=== PATIENT | male | born 1985 | race Caucasian/White ===

== ENCOUNTER 2020-08-10 21:36 | Emergency (ER) | payer MEDICAID ==
[~2020-08-10] VITALS: Ht 177.8 cm; Wt 81.6 kg
--- NOTE | 2020-08-10 21:50 | NUR ---
BIBSELF C/O LUQ ABD PAIN SINCE THIS AM, SEEN AT [place], -CT GIVEN MORPHINE, PAIN RETURNED AT 19:30P. PT AOX RR EVEN AND UNLABORED. NO SOB NOTED. NO NVD AT THIS TIME. 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 PT WAITING FOR MD AGRAWAL.
--- NOTE | 2020-08-10 22:21 | NUR ---
pt moved to er bed 11, dr. jacobs at bedside for eval.
--- NOTE | 2020-08-10 22:23 | NUR ---
urine collected. sent to lab
[2020-08-10] MEDS ORDERED: MORPHINE SULFATE INJ 4 MG/ML DISP.SYRIN ONE (22:27)
[2020-08-10] MEDS ORDERED: FAMOTIDINE/PF INJ 20 MG/2 ML VIAL IV ONE ×2 (22:27→22:30)
[2020-08-10] MEDS ORDERED: MORPHINE SULFATE INJ 2 MG/ML DISP.SYRIN IV ONE (22:30)
[2020-08-10] MEDS ORDERED: IV NS 0.9% 500 ML BAG IV ONE (22:30)
[2020-08-10 22:52] LABS: BASOPHILS % (AUTO) 0.3 % (0.0-2.0); EOSINOPHILS % (AUTO) 0.9 % (0.0-6.0); HEMATOCRIT 44 % (39-51); HEMOGLOBIN 15.1 g/dL (13.5-17.5); LYMPHOCYTES # (AUTO) 1.7 /CMM (0.8-4.8); LYMPHOCYTES % (AUTO) 17.6 % (20.0-44.0); MEAN CORPUSCULAR HGB CONC 34 g/dl (31.0-36.0); MEAN CORPUSCULAR VOLUME 90 fL (80-96); MONOCYTES # (AUTO) 0.8 /CMM (0.1-1.30); MONOCYTES % (AUTO) 8.2 % (2.0-12.0); PLATELET COUNT (AUTO) 177 /CMM (150-450); RED BLOOD CELL COUNT(AUTO) 4.88 MIL/uL (4.5-6.0); WHITE BLOOD COUNT (AUTO) 9.6 K/uL (4.3-11.0)
[2020-08-10 23:03] LABS: CALCIUM, SERUM 8.8 mg/dL (8.5-10.1); CARBON DIOXIDE 30 mmol/L (21-32); CHLORIDE 105 mmol/L (98-107); GLUCOSE 113 mg/dL (74-106); SODIUM SERUM 140 mmol/L (136-145); UREA NITROGEN, BLOOD 9 mg/dL (7-18)
[2020-08-10 23:09] LABS: ALANINE AMINOTRANSFERASE 89 U/L (12-78); ALKALINE PHOSPHATASE 60 U/L (46-116); ASPARTATE AMINOTRANSFERASE 31 U/L (15-37); BILIRUBIN,DIRECT 0.1 mg/dL (0.0-0.2); BILIRUBIN,TOTAL 0.4 mg/dL (0.2-1.0); LIPASE 154 U/L (73-393); TOTAL PROTEIN, SERUM 6.8 g/dL (6.4-8.2)
[2020-08-10 23:34] VITALS: BP 127/88
--- NOTE | 2020-08-10 23:34 | NUR ---
pt is medically stbale for d/c, IV removed. Catheter intact and site benign. Pressure and 4x4 applied to site. No bleeding noted.Patient discharged to home in stable condition. Rx and Written and verbal after care instructions given. Patient verbalizes understanding of instruction.
== END 2020-08-10 23:38 | disposition home or self-care (01) ==
LOC: ER 21:40
DX: R10.12 Left upper quadrant pain (principal); I10 Essential (primary) hypertension
CPT/HCPCS: 36415; 71045; 80048; 80076; 83690; 84484; 85025; 93005; 96361; 96374; 96375; 99285; J2270; J3490; J7040

== ENCOUNTER 2020-08-15 19:50 | Emergency (ER) | payer MEDICAID ==
[~2020-08-15] VITALS: Ht 177.8 cm; Wt 81.6 kg
--- NOTE | 2020-08-15 19:55 | NUR ---
PT BIBRA FROM HOME C/O ABDOMINAL PAIN. 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 PT AAOX4. RESPIRATIONS EVEN AND UNLABORED. SKIN INTACT. NO ACUTE DISTRESS. WILL CONTINUE TO MONITOR
[2020-08-15] MEDS ORDERED: IV NS 0.9% 1,000 ML BAG IV ONE (20:00)
[2020-08-15] MEDS ORDERED: PANTOPRAZOLE 40 MG VIAL IV ONE (20:00)
[2020-08-15] MEDS ORDERED: ONDANSETRON HCL/PF 4 MG/2 ML VIAL IV ONE (20:00)
[2020-08-15] MEDS ORDERED: MORPHINE SULFATE INJ 2 MG/ML DISP.SYRIN IV ONE (20:00)
[2020-08-15] MEDS ORDERED: PANTOPRAZOLE 40 MG VIAL ONE (20:08)
[2020-08-15] MEDS ORDERED: ONDANSETRON HCL/PF 4 MG/2 ML VIAL ONE (20:09)
[2020-08-15] MEDS ORDERED: MORPHINE SULFATE INJ 4 MG/ML DISP.SYRIN ONE (20:09)
--- NOTE | 2020-08-15 20:10 | NUR ---
IV INITIATED RAC 18G. LABS DRAWN FROM SITE. COMMERCIAL COORDINATOR AT BEDSIDE FOR COLLECTION. IV INTACT AND PATENT, PLACED ON SALINE LOCK
[2020-08-15 20:16] LABS: BASOPHILS # (AUTO) 0.1 /CMM (0.0-0.2); BASOPHILS % (AUTO) 0.7 % (0.0-2.0); EOSINOPHILS % (AUTO) 1.4 % (0.0-6.0); HEMATOCRIT 44 % (39-51); HEMOGLOBIN 14.8 g/dL (13.5-17.5); LYMPHOCYTES # (AUTO) 2.1 /CMM (0.8-4.8); LYMPHOCYTES % (AUTO) 21.6 % (20.0-44.0); MEAN CORPUSCULAR HGB CONC 34 g/dl (31.0-36.0); MEAN CORPUSCULAR VOLUME 90 fL (80-96); MONOCYTES # (AUTO) 0.6 /CMM (0.1-1.30); MONOCYTES % (AUTO) 6.6 % (2.0-12.0); NEUTROPHILS # (AUTO) 6.8 /CMM (1.8-8.9); NEUTROPHILS % (AUTO) 69.7 % (43.0-81.0); PLATELET COUNT (AUTO) 193 /CMM (150-450); RED BLOOD CELL COUNT(AUTO) 4.84 MIL/uL (4.5-6.0); WHITE BLOOD COUNT (AUTO) 9.7 K/uL (4.3-11.0)
[2020-08-15 20:22] LABS: CALCIUM, SERUM 9.4 mg/dL (8.5-10.1); CREATININE 1.2 mg/dL (0.6-1.3); POTASSIUM 3.8 mmol/L (3.5-5.1)
[2020-08-15 20:28] LABS: ALBUMIN 4.2 g/dL (3.4-5.0); BILIRUBIN,DIRECT 0.1 mg/dL (0.0-0.2); BILIRUBIN,TOTAL 0.5 mg/dL (0.2-1.0); TOTAL PROTEIN, SERUM 7.3 g/dL (6.4-8.2)
[2020-08-15] MEDS ORDERED: KETOROLAC TROMETHAMINE INJ 30 MG/ML VIAL IV ONE (21:00)
[2020-08-15] MEDS ORDERED: KETOROLAC TROMETHAMINE INJ 30 MG/ML VIAL ONE (21:15)
[2020-08-15 21:33] VITALS: BP 137/79
--- NOTE | 2020-08-15 21:33 | NUR ---
Patient discharged to home in stable condition. Written and verbal after care instructions given. Patient verbalizes understanding of instruction.IV removed. Catheter intact and site benign. Pressure and 4x4 applied to site. No bleeding noted.Pt ambulatory with a steady gait
== END 2020-08-15 21:33 | disposition home or self-care (01) ==
LOC: ER 19:51
DX: K80.80 Other cholelithiasis without obstruction (principal); I10 Essential (primary) hypertension; F17.210 Nicotine dependence, cigarettes, uncomplicated; Z79.899 Other long term (current) drug therapy
CPT/HCPCS: 36415; 71045; 76700; 80048; 80076; 83690; 85025; 96361; 96374; 96375; 99285; 99406; C9113; J1885; J2270; J2405; J7030

== ENCOUNTER 2020-09-30 01:51 | Emergency (ER) | payer MEDICAID ==
[~2020-09-30] VITALS: Ht 177.8 cm; Wt 77.1 kg
[2020-09-30] MEDS ORDERED: KETOROLAC TROMETHAMINE 15 MG/ML VIAL ONE (01:58)
[2020-09-30] MEDS ORDERED: KETOROLAC TROMETHAMINE INJ 30 MG/ML VIAL IV ONE (02:00)
--- NOTE | 2020-09-30 02:06 | NUR ---
PT BIB RA 102 FROM HOME C/O LEFT LOWER ABDOMINAL PAIN RADIATING TO THE LEFT LOWER BACK SINCE 2X HOURS. PATIENT STATES THAT HE TOOK 2 NORCOS FOR PAIN ABOUT A FEW HOURS AGO. PATIENT IS AAAOX4. NO SOB. BREATHING EVENLY AND UNLABORED ON ROOM AIR. CONNECTED TO THE MONITOR.
--- NOTE | 2020-09-30 02:07 | NUR ---
BLOOD COLLECTED AND SENT TO THE LAB.
[2020-09-30] MEDS ORDERED: IOHEXOL-300 100 ML VIAL IV ONE (02:16)
[2020-09-30] MEDS ORDERED: IV NS 0.9% 0 ML IV ONE (02:17)
[2020-09-30 02:18] LABS: BASOPHILS # (AUTO) 0.1 /CMM (0.0-0.2); BASOPHILS % (AUTO) 0.9 % (0.0-2.0); EOSINOPHILS % (AUTO) 2.2 % (0.0-6.0); HEMATOCRIT 43 % (39-51); HEMOGLOBIN 14.8 g/dL (13.5-17.5); LYMPHOCYTES # (AUTO) 3.9 /CMM (0.8-4.8); MEAN CORPUSCULAR HGB CONC 34 g/dl (31.0-36.0); MEAN CORPUSCULAR VOLUME 89 fL (80-96); MONOCYTES # (AUTO) 0.8 /CMM (0.1-1.30); NEUTROPHILS # (AUTO) 4.6 /CMM (1.8-8.9); NEUTROPHILS % (AUTO) 47.9 % (43.0-81.0); PLATELET COUNT (AUTO) 173 /CMM (150-450); RED BLOOD CELL COUNT(AUTO) 4.86 MIL/uL (4.5-6.0); WHITE BLOOD COUNT (AUTO) 9.6 K/uL (4.3-11.0)
[2020-09-30 02:29] LABS: CALCIUM, SERUM 8.7 mg/dL (8.5-10.1); CREATININE 1.2 mg/dL (0.6-1.3); POTASSIUM 3.8 mmol/L (3.5-5.1)
[2020-09-30 02:35] LABS: ALBUMIN 4.1 g/dL (3.4-5.0); BILIRUBIN,DIRECT 0.1 mg/dL (0.0-0.2); BILIRUBIN,TOTAL 0.4 mg/dL (0.2-1.0); TOTAL PROTEIN, SERUM 6.6 g/dL (6.4-8.2)
[2020-09-30 05:06] LABS: COLOR,URINE YELLOW (YELLOW); PROTEIN,URINE NEGATIVE (NEGATIVE); UGLUCOSE NEGATIVE (NEGATIVE)
[2020-09-30 05:07] LABS: BILIRUBIN,URINE NEGATIVE (NEGATIVE); LEUKOCYTE ESTERASE ,URINE NEGATIVE (NEGATIVE); NITRITE, URINE NEGATIVE (NEGATIVE); UROBILINOGEN,URINE 0.2 EU/dL (0.2)
[2020-09-30] MEDS ORDERED: KETO10TA2 PO (05:26)
--- NOTE | 2020-09-30 05:54 | NUR ---
IV removed. Catheter intact and site benign. Pressure and 4x4 applied to site. No bleeding noted.
--- NOTE | 2020-09-30 05:55 | NUR ---
PATIENT CALLING TO PICK HIM UP.
--- NOTE | 2020-09-30 05:55 | NUR ---
Patient discharged to home in stable condition. Written and verbal after care instructions given. Patient verbalizes understanding of instruction.
--- NOTE | 2020-09-30 06:02 | NUR ---
PATIENT IS PICKED UP BY .
[2020-09-30 06:26] VITALS: BP 133/74
[2020-10-01] MEDS ORDERED: ONDANSETRON HCL/PF 4 MG/2 ML VIAL IV PRN (15:30)
[2020-10-01] MEDS ORDERED: HYDROCODONE/APAP 5/325MG TABLET PO ONE ×2 (15:30→18:30)
[2020-10-01] MEDS ORDERED: ZOLPIDEM TARTRATE 5 MG TABLET PO PRN (15:30)
[2020-10-01] MEDS ORDERED: ACETAMINOPHEN 650 MG/20.3 ML UDC PO PRN (15:30)
[2020-10-01] MEDS ORDERED: IV D5/ 0.9% NACL 1,000 ML IV PRN (15:30)
[2020-10-01] MEDS ORDERED: HYDROMORPHONE MDV 0.5 MG in IV D5W 50 ML IV PRN ×2 (15:30→18:30)
[2020-10-02 07:07] LABS: ALBUMIN 3.6 g/dL (3.4-5.0); BASOPHILS % (AUTO) 0.6 % (0.0-2.0); BILIRUBIN,TOTAL 0.5 mg/dL (0.2-1.0); CALCIUM, SERUM 8.7 mg/dL (8.5-10.1); CREATININE 1.1 mg/dL (0.6-1.3); EOSINOPHILS % (AUTO) 2.3 % (0.0-6.0); HEMATOCRIT 42 % (39-51); HEMOGLOBIN 14.2 g/dL (13.5-17.5); LYMPHOCYTES # (AUTO) 2.7 /CMM (0.8-4.8); LYMPHOCYTES % (AUTO) 41.7 % (20.0-44.0); MEAN CORPUSCULAR HGB CONC 34 g/dl (31.0-36.0); MEAN CORPUSCULAR VOLUME 90 fL (80-96); MONOCYTES # (AUTO) 0.5 /CMM (0.1-1.30); MONOCYTES % (AUTO) 7.9 % (2.0-12.0); NEUTROPHILS # (AUTO) 3.1 /CMM (1.8-8.9); NEUTROPHILS % (AUTO) 47.5 % (43.0-81.0); PLATELET COUNT (AUTO) 158 /CMM (150-450); POTASSIUM 3.9 mmol/L (3.5-5.1); RED BLOOD CELL COUNT(AUTO) 4.61 MIL/uL (4.5-6.0); TOTAL PROTEIN, SERUM 5.9 g/dL (6.4-8.2); WHITE BLOOD COUNT (AUTO) 6.5 K/uL (4.3-11.0)
[2020-10-03] MEDS ORDERED: Amox/Clavulanate PO (09:20)
[2020-10-03] MEDS ORDERED: ACET-907 PO (09:20)
== END 2020-09-30 06:26 | disposition home or self-care (01) ==
LOC: ER 01:52
DX: R10.12 Left upper quadrant pain (principal); R10.32 Left lower quadrant pain; I10 Essential (primary) hypertension; F17.200 Nicotine dependence, unspecified, uncomplicated
CPT/HCPCS: 36415; 74176; 80048; 80076; 81003; 83690; 85025; 96374; 99284; J1885; J7050; Q9967

== ENCOUNTER 2020-10-01 03:39 | Inpatient (IN) | payer MEDICAID ==
[~2020-10-01] VITALS: Ht 177.8 cm; Wt 77.1 kg
[~2020-10-01 03:39] MED LIST: KETO10TA2 PO
--- NOTE | 2020-10-01 03:46 | NUR ---
Pt bibself c/o worsening abd pain x few hours. pt aaox4 breathing evenly and unlabored. pt moaning and holding left side. pt denies n/v/d. Pt skin warm, dry, and intact. Pt has gallbladder surgery on 10/11. Rt ac 20g iv initiated and blood sample obtained and sent to lab. pt attached to monitor and pox. pt made comfortable with blanket and call light within reach.
[2020-10-01] MEDS ORDERED: MORPHINE SULFATE INJ 4 MG/ML DISP.SYRIN ONE (03:55)
[2020-10-01] MEDS ORDERED: MORPHINE SULFATE INJ 2 MG/ML DISP.SYRIN IV ONE (04:00)
[2020-10-01 04:13] LABS: BASOPHILS # (AUTO) 0.1 /CMM (0.0-0.2); BASOPHILS % (AUTO) 0.6 % (0.0-2.0); EOSINOPHILS % (AUTO) 1.7 % (0.0-6.0); HEMATOCRIT 42 % (39-51); HEMOGLOBIN 14.5 g/dL (13.5-17.5); LYMPHOCYTES # (AUTO) 2.2 /CMM (0.8-4.8); MEAN CORPUSCULAR HGB CONC 35 g/dl (31.0-36.0); MEAN CORPUSCULAR VOLUME 89 fL (80-96); MONOCYTES # (AUTO) 0.7 /CMM (0.1-1.30); MONOCYTES % (AUTO) 7.5 % (2.0-12.0); NEUTROPHILS # (AUTO) 6.4 /CMM (1.8-8.9); NEUTROPHILS % (AUTO) 67.2 % (43.0-81.0); PLATELET COUNT (AUTO) 161 /CMM (150-450); RED BLOOD CELL COUNT(AUTO) 4.69 MIL/uL (4.5-6.0); WHITE BLOOD COUNT (AUTO) 9.5 K/uL (4.3-11.0)
[2020-10-01 04:22] LABS: CALCIUM, SERUM 8.7 mg/dL (8.5-10.1); CREATININE 1.3 mg/dL (0.6-1.3); POTASSIUM 3.8 mmol/L (3.5-5.1)
--- NOTE | 2020-10-01 04:26 | NUR ---
us at bedside
[2020-10-01 04:27] LABS: BILIRUBIN,DIRECT 0.1 mg/dL (0.0-0.2); BILIRUBIN,TOTAL 0.4 mg/dL (0.2-1.0); TOTAL PROTEIN, SERUM 6.4 g/dL (6.4-8.2)
--- NOTE | 2020-10-01 06:00 | NUR ---
covid swab sent to lab
--- NOTE | 2020-10-01 06:17 | NUR ---
PER [employer] REPAIRER RAHEEM PT CAPITATED TO [facility]. WILL FAX CLINICAL INFORMATION PER REQUEST Addendum: 10/01/20 at 0713 by CASIMIRO PER RAHEEM, PLEASE FAX COVID RESULTS WHEN FINAL ([phone])
--- NOTE | 2020-10-01 07:13 | NUR ---
endorsed care to ZORAIDA Garza for deisy
--- NOTE | 2020-10-01 07:39 | NUR ---
received a call from the lab regarding covid 19 result "negative".
--- NOTE | 2020-10-01 08:06 | NUR ---
FAXED COVID RESULTS TO [phone]
--- NOTE | 2020-10-01 09:23 | NUR ---
ANUEL REGAL [phone]
--- NOTE | 2020-10-01 09:48 | NUR ---
received a call from the and update given in regards with [place] [facility]
--- NOTE | 2020-10-01 13:35 | NUR ---
Received a call from [employer] business case analyst in regards with the patient to admit the patient here, [facility] under Dr. Pina.
--- NOTE | 2020-10-01 13:40 | NUR ---
DR MEYER SPEAKING WITH DR ALMENDAREZ
--- NOTE | 2020-10-01 13:43 | NUR ---
CALLED RN PNP FOR BED
--- NOTE | 2020-10-01 14:20 | NUR ---
room 304-1
--- NOTE | 2020-10-01 14:32 | NUR ---
wheeled patient via wheelchair to MRI
--- NOTE | 2020-10-01 14:38 | NUR ---
report given to shirley CONWAY for deisy
--- NOTE | 2020-10-01 15:03 | NUR ---
patient came back from MRI
--- NOTE | 2020-10-01 15:39 | NUR ---
BROUGHT PATIENT BY SAMRA IN NO DISTRESS. RN AT BEDSIDE TO RESUME CARE.
[2020-10-01] MEDS ORDERED: IOHEXOL-350 100 ML VIAL IV ONE (15:43)
[2020-10-01] MEDS ORDERED: IV NS 0.9% 250 ML IV ONE (15:44)
--- NOTE | 2020-10-01 15:59 | NUR ---
MS RN ADMITTING NOTES RECEIVED PATIENT FROM ER IN MEDICALLY STABLE CONDITION. PATIENT A/O X4. SAFETY PRECAUTIONS IN PLACE; BED IN LOW POSITION AND LOCKED, RAILS UP X2, CALL LIGTH WITHIN REACH. WILL CONTINUE TO MONITOR PATIENT.
[2020-10-01] MEDS ORDERED: PEG 3350/NA SULF,BICARB,CL/KCL 4,000 ML BOTTLE PO ONE (16:00)
--- NOTE | 2020-10-01 16:00 | NUR ---
MS RN NOTES PER DR. URIBE ORDER PATIENT TO BE ON CLEAR LIQUID DIET FOR NOW AND MAKE HIM NPO AFTER MIDNIGHT.
--- NOTE | 2020-10-01 16:47 | NUR ---
MS RN NOTES DR FIORE CALLED AND REQUESTED TO CANCEL ALL HIS ORDERS BECAUSE DR URIBE HAS PLANNED A SURGERY FOR TOMORROW. ORDERS CANCELED.
--- NOTE | 2020-10-01 16:49 | NUR ---
CTA ABDOMEN PELVIS ORDERED BY DR. SERRATO UNDER 10/01/19 AT 1520. PATIENT STATES HE IS ALLERGIC TO CONTRAST. RN WAS NOTIFIED, WILL WAIT FOR FOLLOW UP INSTRUCTION IF EXAM IS STILL NEEDED.
[2020-10-01 18:00] VITALS: BP 118/82
[2020-10-01] MEDS ORDERED: ACETAMINOPHEN 650 MG/20.3 ML UDC PO PRN (18:30)
[2020-10-01] MEDS ORDERED: ONDANSETRON HCL/PF 4 MG/2 ML VIAL IV PRN (18:30)
[2020-10-01] MEDS ORDERED: ZOLPIDEM TARTRATE 5 MG TABLET PO PRN (18:30)
[2020-10-01] MEDS ORDERED: HYDROCODONE/APAP 5/325MG TABLET PO ONE (18:31)
[2020-10-01] MEDS: IV D5/ 0.9% NACL 1,000 ML IV PRN (18:43)
[2020-10-01] MEDS ORDERED: HYDROMORPHONE MDV 0.5 MG in IV D5W 50 ML IV PRN (19:00)
--- NOTE | 2020-10-01 19:13 | NUR ---
MS RN CLOSING NOTES PATIENT RESTING IN BED, AWAKE, A/O X4. PATIENT ON ROOM AIR; BREATHING EVEN AND UNLABORED; NO SOB PRESENT. LAC G #20 INFUSING D5NS @ 75 MLS/HR. PATIENT TO BE NPO AFTER MIDNIGHT PER MD ORDER. SAFETY PRECAUTIONS IN PLACE; BED IN LOW POSITION AND LOCKED, RAILS UP X2, CALL LIGHT WITHIN REACH. WILL ENDORSE TO PILL PACKER NURSE.
--- NOTE | 2020-10-01 19:30 | NUR ---
MSRN FULLY AWAKE, IVF INFUSING WELL VIA RIGHT AC. NO N/V AT THIS TIME. REMINDED TO CALL STAFF FOR ANY ASSISTANCE OR FURTHER DISCOMFORTS, SAFETY PRECAUTIONS EMPHASIZED WELL UNDERSTOOD. SPOKE TO VIA PHONE KEPT INFORMED. CONTINUED.
[2020-10-01 20:00] VITALS: BP 103/60
--- NOTE | 2020-10-01 20:20 | NUR ---
MSRN PLACED CALL TO DR. MEYER FURTHER ORDERS OBTAINED. PATIENT FOR SURGERY ANGELA UNDER DR. URIBE. PENDING TIME INFO. PATIENT INSTRUCTED NPO POST MIDNIGHT.
[2020-10-01 20:39] VITALS: BP 103/60
--- NOTE | 2020-10-02 03:34 | NUR ---
MSRN SLEPT MOST OF THE NIGHT. IVF INFUSING WELL.
[2020-10-02] MEDS: IV D5/ 0.9% NACL 1,000 ML IV PRN (05:44)
[2020-10-02] MEDS ORDERED: SORBITOL SOLUTION 30 ML PO SCH (06:00)
--- NOTE | 2020-10-02 07:00 | NUR ---
MSRN NPO INSTRUCTED. NO ABDOMINAL PAIN WHOLE NIGHT. PRE OP EDUCATION DONE. ENDORSED TO INCOMING RN
--- NOTE | 2020-10-02 07:30 | NUR ---
MS/RN OPENING NOTE Received patient resting in bed, A&O x 4, easily arousable to touch and verbal stimulation. Denies any pain/discomfort at this time. Breathing even and non-labored on RA, no SOB noted. No cardiac distress noted. IV access noted on RAC #18, patent and intact, and running D5NS @ 75 ml/hr. Bed locked to its lowest position, side rails x 2 up, call light in hand. Will continue with current medical management.
[2020-10-02 08:00] VITALS: BP 107/65
--- NOTE | 2020-10-02 08:30 | NUR ---
MS/RN NOTE Clarified with Dr. Pina whether patient needs CXR, EKG, UA prior to procedure, per MD, "no need."
--- NOTE | 2020-10-02 13:46 | NUR ---
MS/RN NOTE Patient picked up by OR tech/nurse for scheduled lap cholecystectomy.
[2020-10-02] MEDS ORDERED: MIDAZOLAM HCL 2 MG/2ML VIAL ONE (14:25)
[2020-10-02] MEDS ORDERED: FAMOTIDINE/PF INJ 20 MG/2 ML VIAL IV ONE (14:26)
[2020-10-02] MEDS ORDERED: FENTANYL PF 250MCG/5ML AMPUL ONE (14:26)
[2020-10-02] MEDS ORDERED: BUPIVACAINE MPF W/EPI 0.25% 30 ML VIAL ONE (14:28)
--- NOTE | 2020-10-02 14:46 | NUR ---
MS/RN NOTE Spoke with Dr. Pina, states patient will have to do colonoscopy outpatient.
[2020-10-02] MEDS ORDERED: HYDROMORPHONE 1 MG/1 ML DISP.SYRIN ONE (16:13)
[2020-10-02 17:00] VITALS: BP 126/73
--- NOTE | 2020-10-02 17:00 | NUR ---
MS/RN NOTE Patient came back from OR, transferred safely to [facility]. Patient appears well and comfortable, on 2L oxygen via NC, saturating at 96%. Clean dry dressing noted on right lower quadrant of the abdomen, MIGUELINA drain noted with serosanguinous fluid of 50 cc. Per PACU nurse, they emptied out 25 cc today. Will continue to monitor. Addendum: 10/02/20 at 1923 by CARLOS DOWNEY RN POST OP ORDERS FROM DR URIBE NOTED IN THE CHART AND CARRIED OUT.
--- NOTE | 2020-10-02 19:22 | NUR ---
MS/RN CLOSING NOTE Patient resting in bed, A&O x 4, easily arousable to touch and verbal stimulation. All needs met and attended to. No complaints of any pain/discomfort at this time. Breathing even and non-labored on RA, no SOB noted. No cardiac distress noted. IV access noted on RAC #18, patent and intact, and running D5NS @ 75 ml/hr. MIGUELINA drain noted with serosanguinous fluid. Fall precautions maintained. Will endorse to restaurant shift leader nurse.
--- NOTE | 2020-10-02 19:30 | NUR ---
MS/RN OPENING NOTE Received patient resting in bed, A&O x4, able to verbalize needs. In no apparent distress noted. Denies any pain or discomfort at this time. Breathing even and non-labored on room air, no SOB noted. IV access noted on RAC #18, patent and intact, and running D5NS @ 75 ml/hr. Bed locked to its lowest position, side rails x 2 up, call light within reach. Will continue to monitor.
[2020-10-02 20:00] VITALS: BP 106/58
[2020-10-02] MEDS: HYDROMORPHONE 1 MG/1 ML DISP.SYRIN IV PRN (22:46)
[2020-10-03] MEDS: HYDROMORPHONE 1 MG/1 ML DISP.SYRIN IV PRN (05:05)
--- NOTE | 2020-10-03 06:04 | NUR ---
MS/RN closing note: Patient in bed, awake, alert and oriented x4. Able to verbalize needs. In no apparent distress noted. Denies any pain or discomfort at this time. Breathing even and non-labored on room air, no SOB noted. IV access noted on RAC #18, patent and intact. Bed locked to its lowest position, side rails x 2 up, call light within reach. Will continue to monitor.
[2020-10-03 06:06] LABS: BASOPHILS % (AUTO) 0.2 % (0.0-2.0); EOSINOPHILS % (AUTO) 0.1 % (0.0-6.0); HEMATOCRIT 43 % (39-51); HEMOGLOBIN 14.6 g/dL (13.5-17.5); LYMPHOCYTES # (AUTO) 1.2 /CMM (0.8-4.8); LYMPHOCYTES % (AUTO) 9.4 % (20.0-44.0); MEAN CORPUSCULAR HGB CONC 34 g/dl (31.0-36.0); MEAN CORPUSCULAR VOLUME 90 fL (80-96); MONOCYTES # (AUTO) 0.7 /CMM (0.1-1.30); MONOCYTES % (AUTO) 5.9 % (2.0-12.0); NEUTROPHILS # (AUTO) 10.4 /CMM (1.8-8.9); NEUTROPHILS % (AUTO) 84.4 % (43.0-81.0); PLATELET COUNT (AUTO) 184 /CMM (150-450); WHITE BLOOD COUNT (AUTO) 12.4 K/uL (4.3-11.0)
[2020-10-03 06:52] LABS: ALBUMIN 3.8 g/dL (3.4-5.0); BILIRUBIN,TOTAL 0.5 mg/dL (0.2-1.0); CALCIUM, SERUM 8.8 mg/dL (8.5-10.1); CREATININE 1.1 mg/dL (0.6-1.3); POTASSIUM 4.7 mmol/L (3.5-5.1); TOTAL PROTEIN, SERUM 6.5 g/dL (6.4-8.2)
--- NOTE | 2020-10-03 07:38 | NUR ---
MS RN OPENING NOTE PATIENT IS IN BED RESTING. PATIENT IS IN NO ACUTE DISTRESS. NO SOB NOTED. PATIENT IS ON ROOM AIR. TOLERATING WELL. BED SAFETY PRECAUTIONS ARE IN PLACE. BED IN THE LOWEST POSITION. SIDE RAILS ARE UP, CALL LIGHT WITHIN REACH, WILL CONTINUE TO MONITOR CLOSELY.
[2020-10-03 08:00] VITALS: BP 128/78
[2020-10-03] MEDS ORDERED: Amox/Clavulanate PO (09:20)
[2020-10-03] MEDS ORDERED: ACET-907 PO (09:20)
[2020-10-03] MEDS ORDERED: AMOX/CLAVULANATE 875 MG TABLET PO SCH (10:00)
--- NOTE | 2020-10-03 12:00 | NUR ---
MS BABY ATTENDANT NOTE PATIENT IS STABLE IN NO ACUTE DISTRESS. SAFETY PRECAUTIONS ARE ON. PATIENT IS MEDICALLY STABLE TO BE DISCHARGED. VITALS SIGNS ARE WNL. NO SOB NOTED. PATIENT IS ABLE TO VERBALIZE UNDERSTANDING. DISCHARGE INSTRUCTIONS PROVIDED. PATIENTS BELONGINGS LIST IS SIGHED. IV LINE AND ID BAND REMOVED. PATIENT IS ABLE TO AMBULATE. PATIENT IS PICKED UP BY HIS . MD IS AWARE OF DISCHARGE.
== END 2020-10-03 11:30 | disposition home or self-care (01) | DRG 263 ==
LOC: ER 03:41 → TRANSITION 13:59 → MED 14:43
PROVIDERS: ADMIT Internal Medicine; ATTEND Internal Medicine
PROC: 0FT44ZZ Resection of Gallbladder, Percutaneous Endoscopic Approach (ICD-10-PCS; principal; 2020-10-02)
DX: K80.12 Calculus of gallbladder with acute and chronic cholecystitis without obstruction (principal); G89.29 Other chronic pain; F17.210 Nicotine dependence, cigarettes, uncomplicated; Z20.822 Contact with and (suspected) exposure to COVID-19
CPT/HCPCS: 36415; 74181-TC; 76705-TC; 80048-TC; 80053-TC; 80076-TC; 83690-TC; 85025-TC; 85610-TC; 85730-TC; 86850-TC; 87081-TC; A6253; C9803; G0378; J0690; J1100; J1170; J1885; J2250; J2270; J2704; J2765; J3010; J3490; J7042; J7050; Q9967

== ENCOUNTER 2020-12-26 21:18 | Emergency (ER) | payer MEDICAID ==
[~2020-12-26] VITALS: Ht 177.8 cm; Wt 79.4 kg
[~2020-12-26 21:18] MED LIST changes: +ACET-907 PO; +Amox/Clavulanate PO; -KETO10TA2 PO
--- NOTE | 2020-12-26 21:23 | NUR ---
BIBSELF C/O L SIDED WEAKNESS SINCE AM +FACIAL NUMBNESS, PT STATES SYMPTOMS STARTED 11AM TODAY. PT TO BED 8, PLACED ON MONITOR, NOT IN ACUTE DISTRESS, NO SOB. VSS, PENDING ER PROVIDER NGHIA
[2020-12-26] MEDS ORDERED: ASPIRIN 325 MG TABLET PO ONE (22:00)
[2020-12-26 22:17] LABS: BASOPHILS # (AUTO) 0.1 /CMM (0.0-0.2); BASOPHILS % (AUTO) 1.1 % (0.0-2.0); EOSINOPHILS % (AUTO) 2.5 % (0.0-6.0); HEMATOCRIT 46 % (39-51); HEMOGLOBIN 15.8 g/dL (13.5-17.5); LYMPHOCYTES # (AUTO) 3.5 /CMM (0.8-4.8); LYMPHOCYTES % (AUTO) 37.8 % (20.0-44.0); MEAN CORPUSCULAR HGB CONC 34 g/dl (31.0-36.0); MEAN CORPUSCULAR VOLUME 90 fL (80-96); MONOCYTES # (AUTO) 0.7 /CMM (0.1-1.30); MONOCYTES % (AUTO) 7.6 % (2.0-12.0); NEUTROPHILS # (AUTO) 4.7 /CMM (1.8-8.9); PLATELET COUNT (AUTO) 191 /CMM (150-450); RED BLOOD CELL COUNT(AUTO) 5.11 MIL/uL (4.5-6.0); WHITE BLOOD COUNT (AUTO) 9.1 K/uL (4.3-11.0)
[2020-12-26] MEDS ORDERED: IOHEXOL-350 100 ML VIAL IV ONE (22:23)
[2020-12-26] MEDS ORDERED: IV NS 0.9% 250 ML IV ONE (22:23)
[2020-12-26] MEDS ORDERED: CT SWABBABLE VALVE TRANS SET 1 EA INFUS.SET MC ONE (22:23)
--- NOTE | 2020-12-26 22:26 | NUR ---
PT HAS IODINE ALLERGY, ZEAMARJIT VERA VERIFIED WITH PATIENT, HAS ALLERGY RXN = RASHES. PT CAN GO CT WITH CONTRAST.
[2020-12-26 22:30] LABS: CALCIUM, SERUM 8.6 mg/dL (8.5-10.1); CARBON DIOXIDE 29 mmol/L (21-32); CHLORIDE 102 mmol/L (98-107); CREATININE 1.2 mg/dL (0.6-1.3); GLUCOSE 100 mg/dL (74-106); POTASSIUM 3.8 mmol/L (3.5-5.1); SODIUM SERUM 139 mmol/L (136-145); UREA NITROGEN, BLOOD 11 mg/dL (7-18)
[2020-12-26] MEDS ORDERED: DILTIAZEM HCL 25 MG IV IV ONE (22:30)
--- NOTE | 2020-12-26 22:54 | NUR ---
BACK FROM CT
[2020-12-26 22:59] LABS: CHOLESTEROL 267 mg/dL (<200); HDL CHOLESTEROL 36 mg/dL (40-60); LDL 186 mg/dL (0-99); TRIGLYCERIDES 330 mg/dL (30-150)
[2020-12-26] MEDS ORDERED: ASPIRIN 325 MG TABLET ONE (23:13)
--- NOTE | 2020-12-26 23:39 | NUR ---
CALL FROM LAB. RAPID COVID NEGATIVE.
--- NOTE | 2020-12-26 23:41 | NUR ---
Patient does not wish to proceed with medical care recommended by Jayme VERA Patient given information related to possible complications, up to and including , which could occur as a result of leaving the hospital at this time. Patient verbalizes understanding of risks involved due to leaving against medical advice. Patient has signed AMA form.
[2020-12-27 00:10] VITALS: BP 148/90
== END 2020-12-27 00:10 | disposition home or self-care (01) ==
LOC: ER 21:20
DX: R29.2 Abnormal reflex (principal); E78.2 Mixed hyperlipidemia; Z91.14 Patient's other noncompliance with medication regimen; I10 Essential (primary) hypertension; F17.210 Nicotine dependence, cigarettes, uncomplicated; Z91.041 Radiographic dye allergy status; Z91.013 Allergy to seafood; Z20.822 Contact with and (suspected) exposure to COVID-19
CPT/HCPCS: 36415; 70450; 70496; 70498; 71045; 80048; 80061; 84484; 85025; 85730; 87081; 87426; 93005; 99285; C9803; J7050; Q9967

== ENCOUNTER 2021-02-20 10:32 | Emergency (ER) | payer MEDICAID ==
[~2021-02-20] VITALS: Ht 177.8 cm; Wt 78.9 kg
--- NOTE | 2021-02-20 10:50 | NUR ---
THE PATIENT IS BIB [facility] FOR C/O ON & OFF LOW ABDOMINAL CRAMPING AND DIARRHEA X 4 DAYS. RATES ABODMINAL PAIN 5/10. THE PATIENT DENIES NAUSEA/VOMITING. THE PATIENT IS IN ROOM AIR AND DENIES SOB. RESPIRATION REGULAR AND UNLABORED. WILL CONTINUE TO MONITOR THE PATIENT.
[2021-02-20] MEDS: IV NS 0.9% 1,000 ML BAG IV ONE (11:09)
[2021-02-20] MEDS ORDERED: KETOROLAC TROMETHAMINE 15 MG/ML VIAL ONE (11:10)
[2021-02-20] MEDS: KETOROLAC TROMETHAMINE INJ 30 MG/ML VIAL IV ONE (11:10)
[2021-02-20 11:14] LABS: BASOPHILS # (AUTO) 0.1 K/uL (0.0-0.2); BASOPHILS % (AUTO) 1.1 % (0.0-2.0); EOSINOPHILS % (AUTO) 1.7 % (0.0-6.0); HEMATOCRIT 45 % (39-51); HEMOGLOBIN 15.4 g/dL (13.5-17.5); LYMPHOCYTES # (AUTO) 1.9 K/uL (0.8-4.8); LYMPHOCYTES % (AUTO) 22.5 % (20.0-44.0); MEAN CORPUSCULAR HGB CONC 34 g/dl (31.0-36.0); MEAN CORPUSCULAR VOLUME 90 fL (80-96); MONOCYTES # (AUTO) 0.6 K/uL (0.1-1.30); MONOCYTES % (AUTO) 7.1 % (2.0-12.0); NEUTROPHILS # (AUTO) 5.6 K/uL (1.8-8.9); NEUTROPHILS % (AUTO) 67.6 % (43.0-81.0); PLATELET COUNT (AUTO) 172 K/uL (150-450); WHITE BLOOD COUNT (AUTO) 8.3 K/uL (4.3-11.0)
[2021-02-20 11:21] LABS: CALCIUM, SERUM 8.7 mg/dL (8.5-10.1); POTASSIUM 4.1 mmol/L (3.5-5.1)
[2021-02-20 11:32] LABS: ALBUMIN 3.9 g/dL (3.4-5.0); BILIRUBIN,DIRECT 0.1 mg/dL (0.0-0.2); BILIRUBIN,TOTAL 0.4 mg/dL (0.2-1.0); TOTAL PROTEIN, SERUM 6.7 g/dL (6.4-8.2)
[2021-02-20] MEDS ORDERED: MORPHINE SULFATE INJ 4 MG/ML DISP.SYRIN ONE ×2 (12:01→13:03)
[2021-02-20] MEDS: MORPHINE SULFATE INJ 2 MG/ML DISP.SYRIN IV ONE ×2 (12:06→13:06)
--- NOTE | 2021-02-20 12:07 | NUR ---
MEDICATED PER ERMD ORDER, PT ZULEIMA WELL.
--- NOTE | 2021-02-20 13:34 | NUR ---
IV removed. Catheter intact and site benign. Pressure and 4x4 applied to site. No bleeding noted.
[2021-02-20] MEDS ORDERED: METR500T PO (13:39)
[2021-02-20] MEDS ORDERED: CIPR-262 PO (13:39)
--- NOTE | 2021-02-20 13:44 | NUR ---
Patient discharged to home in stable condition. Written and verbal after care instructions given. Patient verbalizes understanding of instruction.
[2021-02-20 13:45] VITALS: BP 124/76
== END 2021-02-20 13:48 | disposition home or self-care (01) ==
LOC: ER 10:36
DX: R10.30 Lower abdominal pain, unspecified (principal); R19.7 Diarrhea, unspecified; I10 Essential (primary) hypertension; F17.200 Nicotine dependence, unspecified, uncomplicated; Z91.013 Allergy to seafood; Z91.048 Other nonmedicinal substance allergy status; Z79.899 Other long term (current) drug therapy
CPT/HCPCS: 36415; 80048; 80076; 83690; 85025; 96361; 96374; 96375; 96376; 99284; J1885; J2270 ×2; J7030

== ENCOUNTER 2021-03-01 14:07 | Emergency (ER) | payer MEDICAID ==
[~2021-03-01] VITALS: Ht 177.8 cm; Wt 78.5 kg
[~2021-03-01 14:07] MED LIST changes: +CIPR-262 PO; +METR500T PO
[2021-03-01] MEDS ORDERED: ONDANSETRON HCL/PF 4 MG/2 ML VIAL ONE (15:21)
[2021-03-01] MEDS ORDERED: MORPHINE SULFATE INJ 4 MG/ML DISP.SYRIN ONE (15:21)
[2021-03-01] MEDS: ONDANSETRON HCL/PF 4 MG/2 ML VIAL IVP ONE (15:27)
[2021-03-01] MEDS: IV NS 0.9% 1,000 ML BAG IV ONE (15:27)
--- NOTE | 2021-03-01 15:30 | NUR ---
BIB SELF C/O RLQ PAIN STARTED THIS MORNING. PT AAOX4, VSS. RR EVEN & UNLABORED. DENIES CP, SOB ,DIZZINESS, N/V AT THIS TIME. PT SEEN & EVAL'D BY CHUY BLOOM. MEDICATED ORDERED, PT ZULEIMA WELL. WILL CONT TO MONITOR.
[2021-03-01] MEDS: MORPHINE SULFATE INJ 2 MG/ML DISP.SYRIN IV ONE (15:31)
[2021-03-01 15:43] LABS: BASOPHILS % (AUTO) 0.1 % (0.0-2.0); EOSINOPHILS % (AUTO) 0.4 % (0.0-6.0); HEMATOCRIT 46 % (39-51); HEMOGLOBIN 15.6 g/dL (13.5-17.5); LYMPHOCYTES % (AUTO) 6.6 % (20.0-44.0); MEAN CORPUSCULAR HGB CONC 34 g/dl (31.0-36.0); MEAN CORPUSCULAR VOLUME 91 fL (80-96); MONOCYTES % (AUTO) 6.7 % (2.0-12.0); NEUTROPHILS % (AUTO) 86.2 % (43.0-81.0); PLATELET COUNT (AUTO) 181 K/uL (150-450); RED BLOOD CELL COUNT(AUTO) 5.09 MIL/uL (4.5-6.0); WHITE BLOOD COUNT (AUTO) 15.1 K/uL (4.3-11.0)
[2021-03-01 15:55] LABS: CALCIUM, SERUM 8.7 mg/dL (8.5-10.1); CREATININE 1.1 mg/dL (0.6-1.3); POTASSIUM 3.8 mmol/L (3.5-5.1)
[2021-03-01 16:05] LABS: ALBUMIN 4.2 g/dL (3.4-5.0); BILIRUBIN,DIRECT 0.1 mg/dL (0.0-0.2); BILIRUBIN,TOTAL 0.6 mg/dL (0.2-1.0); TOTAL PROTEIN, SERUM 6.9 g/dL (6.4-8.2)
[2021-03-01] MEDS ORDERED: diphenhydrAMINE HCL 50 MG/ML VIAL ONE (16:05)
[2021-03-01] MEDS ORDERED: IOHEXOL-300 100 ML VIAL IV ONE (16:06)
[2021-03-01] MEDS: diphenhydrAMINE HCL 50 MG/ML VIAL IV ONE (16:09)
[2021-03-01] MEDS ORDERED: DICYCLOMINE HCL INJ 20 MG/2 ML AMPUL IM ONE (16:59)
[2021-03-01] MEDS: DICYCLOMINE HCL INJ 20 MG/2 ML AMPUL IM ONE (17:05)
[2021-03-01 17:15] LABS: BILIRUBIN,URINE Negative (NEGATIVE); COLOR,URINE YELLOW (YELLOW); LEUKOCYTE ESTERASE ,URINE Negative (NEGATIVE); NITRITE, URINE Negative (NEGATIVE); PROTEIN,URINE Negative (NEGATIVE); UGLUCOSE Negative (NEGATIVE); UROBILINOGEN,URINE 0.2 EU/dL (0.2)
[2021-03-01] MEDS ORDERED: DICY10CA37 PO (17:20)
[2021-03-01 17:33] VITALS: BP 127/78
--- NOTE | 2021-03-01 17:33 | NUR ---
Patient discharged to home in stable condition. Written and verbal after care instructions given. Patient verbalizes understanding of instruction. IV removed. Catheter intact and site benign. Pressure and 4x4 applied to site. No bleeding noted.
== END 2021-03-01 17:34 | disposition home or self-care (01) ==
LOC: ER 14:09
DX: K52.9 Noninfective gastroenteritis and colitis, unspecified (principal); F17.210 Nicotine dependence, cigarettes, uncomplicated; I10 Essential (primary) hypertension; Z90.49 Acquired absence of other specified parts of digestive tract; Z91.013 Allergy to seafood; Z91.048 Other nonmedicinal substance allergy status; Z79.899 Other long term (current) drug therapy
CPT/HCPCS: 36415; 74177; 80048; 80076; 81003; 83690; 85025; 85730; 96361; 96372; 96374; 96375; 99285; 99406; J0500; J1200; J2270; J2405; J7030; Q9967

== ENCOUNTER 2021-07-19 18:26 | Emergency (ER) | payer MEDICAID ==
[~2021-07-19] VITALS: Ht 177.8 cm; Wt 79.4 kg
[~2021-07-19 18:26] MED LIST changes: +DICY10CA37 PO
--- NOTE | 2021-07-19 19:25 | NUR ---
PATIENT BIBSELF C/O FEVER AND ABD PAIN FOR THE PAST 2 DAYS. PT TOOK TYLENOL 1G 1 HR AGO. PATIENT IS A/O X 4, RR EVEN AND LABORED, NO SOB NOTED. PATIENT CONNECTED TO NETWORK SPECIALIST AND POX.
[2021-07-19] MEDS ORDERED: ONDANSETRON HCL/PF 4 MG/2 ML VIAL IVP ONE (19:30)
[2021-07-19] MEDS ORDERED: IV NS 0.9% 1,000 ML BAG IV ONE (19:30)
[2021-07-19] MEDS ORDERED: MORPHINE SULFATE INJ 2 MG/ML DISP.SYRIN IV ONE (19:30)
[2021-07-19] MEDS ORDERED: ONDANSETRON HCL/PF 4 MG/2 ML VIAL ONE (19:33)
[2021-07-19] MEDS ORDERED: MORPHINE SULFATE INJ 4 MG/ML DISP.SYRIN ONE (19:34)
--- NOTE | 2021-07-19 19:56 | NUR ---
COVID,PCR,INFLUENZA SWABS COLLECTED AND SENT TO LAB
[2021-07-19 20:05] LABS: ALBUMIN 3.6 g/dL (3.4-5.0); BILIRUBIN,DIRECT 0.1 mg/dL (0.0-0.2); BILIRUBIN,TOTAL 0.4 mg/dL (0.2-1.0); CALCIUM, SERUM 8.3 mg/dL (8.5-10.1); CREATININE 1.1 mg/dL (0.6-1.3); POTASSIUM 3.8 mmol/L (3.5-5.1); TOTAL PROTEIN, SERUM 6.3 g/dL (6.4-8.2)
--- NOTE | 2021-07-19 20:07 | NUR ---
URINE COLLECTED AND SENT TO LAB
[2021-07-19 20:13] LABS: BASOPHILS # (AUTO) 0.1 K/uL (0.0-0.2); BASOPHILS % (AUTO) 0.7 % (0.0-2.0); HEMATOCRIT 45 % (39-51); HEMOGLOBIN 15.4 g/dL (13.5-17.5); LYMPHOCYTES # (AUTO) 1.6 K/uL (0.8-4.8); LYMPHOCYTES % (AUTO) 19.3 % (20.0-44.0); MEAN CORPUSCULAR HGB CONC 35 g/dl (31.0-36.0); MEAN CORPUSCULAR VOLUME 90 fL (80-96); MONOCYTES # (AUTO) 0.6 K/uL (0.1-1.30); MONOCYTES % (AUTO) 7.5 % (2.0-12.0); NEUTROPHILS % (AUTO) 71.5 % (43.0-81.0); PLATELET COUNT (AUTO) 143 K/uL (150-450); RED BLOOD CELL COUNT(AUTO) 4.95 MIL/uL (4.5-6.0); WHITE BLOOD COUNT (AUTO) 8.3 K/uL (4.3-11.0)
[2021-07-19] MEDS ORDERED: HYDROMORPHONE 1 MG/1 ML DISP.SYRIN ONE (20:18)
[2021-07-19] MEDS ORDERED: HYDROMORPHONE 1 MG/1 ML DISP.SYRIN IV ONE (20:30)
--- NOTE | 2021-07-19 20:30 | NUR ---
DILAUDID 1MG PULLED, PATIENT ADMINISTERED DILAUDID 0.5 MG IVP, WASTE WITNESSED BY RN MECHE KRUSE DID NOT RECORD WASTE.
[2021-07-19 20:35] LABS: BILIRUBIN,URINE NEGATIVE (NEGATIVE); COLOR,URINE YELLOW (YELLOW); LEUKOCYTE ESTERASE ,URINE NEGATIVE (NEGATIVE); NITRITE, URINE NEGATIVE (NEGATIVE); PROTEIN,URINE NEGATIVE (NEGATIVE); UGLUCOSE NEGATIVE (NEGATIVE); UROBILINOGEN,URINE 0.2 EU/dL (0.2)
[2021-07-19] MEDS ORDERED: ONDA4TAB5 PO (21:04)
[2021-07-19] MEDS ORDERED: IBUP-1955 PO (21:04)
[2021-07-19] MEDS ORDERED: HYDR-4303 PO (21:04)
[2021-07-19 21:08] VITALS: BP 138/70
--- NOTE | 2021-07-19 21:08 | NUR ---
Patient discharged to home in stable condition. Written and verbal after care instructions given. Patient verbalizes understanding of instruction.
== END 2021-07-19 21:16 | disposition home or self-care (01) ==
LOC: ER 18:30
DX: B34.9 Viral infection, unspecified (principal); Z20.822 Contact with and (suspected) exposure to COVID-19; Z91.041 Radiographic dye allergy status; Z91.013 Allergy to seafood; I10 Essential (primary) hypertension; Z90.49 Acquired absence of other specified parts of digestive tract
CPT/HCPCS: 36415; 80048; 80076; 81003; 83690; 85025; 87426; 87804; 96361; 96374; 96375; 99284; C9803; J1170; J2270; J2405; J7030; U0003

== ENCOUNTER 2024-02-04 14:29 | Emergency (ER) | payer MEDICAID ==
[~2024-02-04] VITALS: Ht 177.8 cm; Wt 81.6 kg
[~2024-02-04 14:29] MED LIST changes: +HYDR-4303 PO; +IBUP-1955 PO; +ONDA4TAB5 PO
[2024-02-04] MEDS ORDERED: HYDR-500 PO (14:49)
[2024-02-04] MEDS ORDERED: METH4TAB3 PO (14:49)
[2024-02-04 15:16] VITALS: BP 131/69; TEMP 98.6; O2SAT 98
== END 2024-02-04 15:16 | disposition home or self-care (01) ==
LOC: ER 14:33
DX: L50.1 Idiopathic urticaria (principal); I10 Essential (primary) hypertension; F17.200 Nicotine dependence, unspecified, uncomplicated; Z91.040 Latex allergy status; Z91.013 Allergy to seafood

== ENCOUNTER 2025-02-09 12:39 | Emergency (ER) | payer MEDICAID ==
[~2025-02-09] VITALS: Ht 177.8 cm; Wt 68.0 kg
[~2025-02-09 12:39] MED LIST changes: +HYDR-500 PO; +METH4TAB3 PO
[2025-02-09] MEDS ORDERED: ASPIRIN EC 81 MG TABLET.DR PO ONE (13:16)
[2025-02-09 13:20] LABS: BASOPHILS # (AUTO) 0.1 K/uL (0.0-0.2); EOSINOPHILS # (AUTO) 0.1 K/uL (0.0-0.7); EOSINOPHILS % (AUTO) 1.8 % (0.0-6.0); HEMATOCRIT 44 % (39-51); HEMOGLOBIN 15.1 g/dL (13.5-17.5); LYMPHOCYTES # (AUTO) 2.1 K/uL (0.8-4.8); LYMPHOCYTES % (AUTO) 28.7 % (20.0-44.0); MEAN CORPUSCULAR HEMOGLOBIN 31 PG (26.0-33.0); MEAN CORPUSCULAR HGB CONC 35 g/dl (31.0-36.0); MEAN CORPUSCULAR VOLUME 88 fL (80-96); MONOCYTES # (AUTO) 0.5 K/uL (0.1-1.30); MONOCYTES % (AUTO) 7.3 % (2.0-12.0); NEUTROPHILS # (AUTO) 4.5 K/uL (1.8-8.9); NEUTROPHILS % (AUTO) 61.2 % (43.0-81.0); PLATELET COUNT (AUTO) 197 K/uL (150-450); RED BLOOD CELL COUNT(AUTO) 4.92 MIL/uL (4.5-6.0); RED CELL DISTRIBUTION WIDTH 12.9 % (11.5-15.0); WHITE BLOOD COUNT (AUTO) 7.3 K/uL (4.3-11.0)
[2025-02-09] MEDS: ASPIRIN EC 81 MG TABLET.DR PO ONE (13:26)
[2025-02-09 13:28] LABS: CARBON DIOXIDE 28 mmol/L (21-32); CHLORIDE 105 mmol/L (98-107); CREATININE 0.9 mg/dL (0.6-1.3); GLUCOSE 122 mg/dL (74-106); POTASSIUM 3.6 mmol/L (3.5-5.1); SODIUM SERUM 137 mmol/L (136-145); UREA NITROGEN, BLOOD 11 mg/dL (7-18)
[2025-02-09] MEDS ORDERED: IBUP-1490 PO (13:48)
[2025-02-09 14:06] VITALS: BP 134/90; TEMP 98.5; O2SAT 98
== END 2025-02-09 14:06 | disposition home or self-care (01) ==
LOC: ER 12:54
DX: R07.89 Other chest pain (principal); I10 Essential (primary) hypertension; F17.200 Nicotine dependence, unspecified, uncomplicated; Z88.8 Allergy status to other drugs, medicaments and biological substances; Z79.899 Other long term (current) drug therapy
CPT/HCPCS: 36415; 71045-TC; 80048-TC; 84484-TC; 85025-TC